=== PATIENT | male | born 1945 | race Caucasian/White ===

== ENCOUNTER → 2016-10-07 | Outpatient (CLI) | payer OTHER, MEDICARE ==
[~2016-10-07] MED LIST: ASPI81TA21 PO; BUPRTAB51 PO; ESCI10TA17 PO; EZET10TA47 PO; FISHOIL PO; LISI-788 PO; LSN/10125 PO; MULTTAB58 PO; NAPR500T3 PO; TAMS0.4C59 PO
== END | disposition home or self-care (01) ==
LOC: C.RDSM 16:00
PROVIDERS: ATTEND Physical Medicine & Rehabilitation Sports Medicine
DX: M25.532 Pain in left wrist (principal)

== ENCOUNTER → 2016-11-03 | Outpatient (CLI) | payer OTHER, MEDICARE ==
[2016-11-03 15:29] LABS: HEMATOCRIT 38.9 % (42-52); MEAN CELL VOLUME 87.6 fL (80-100); MEAN CORPUSCULAR HEMOGLOBIN 30.9 pg (25-34); MEAN CORPUSCULAR HGB CONC 35.2 g/dl (32-36); MEAN PLATELET VOLUME 9.7 fL (7.4-10.4); PLATELET COUNT 236 K/uL (130-400); RED BLOOD COUNT 4.44 M/uL (4.7-6.1)
[2016-11-03 15:40] LABS: BLOOD UREA NITROGEN 23 mg/dl (7-18); BUN/CREATININE RATIO 16.1 (10-20); CALCIUM 8.7 mg/dl (8.5-10.1); CARBON DIOXIDE 27 mmol/L (21-32); CHLORIDE 107 mmol/L (98-107); GLUCOSE 105 mg/dl (70-99); POTASSIUM 3.7 mmol/L (3.5-5.1); SODIUM 143 mmol/L (136-145)
== END | disposition home or self-care (01) ==
LOC: C.CPL 14:48
PROVIDERS: ATTEND Physical Medicine & Rehabilitation Sports Medicine
DX: Z01.818 Encounter for other preprocedural examination (principal); G56.02 Carpal tunnel syndrome, left upper limb

== ENCOUNTER → 2016-11-05 | Outpatient (CLI) | payer OTHER, MEDICARE ==
[2015-11-13 14:01] VITALS: BP 120/77; PULSE 62
[~2016-11-05] MED LIST changes: -ESCI10TA17 PO; -LSN/10125 PO; -MULTTAB58 PO
[2016-11-05 12:53] VITALS: BP 109/71; PULSE 105; TEMP 36.7; O2SAT 96
--- NOTE | 2016-11-05 13:32 | Radiation Oncology Follow-Up ---
Radiation Oncology Follow-Up Date of Visit Nov 05, 2016. Reason For Visit Annual follow-up Radiation Completion Date Seed Implant - 10/04/12 Diagnosis (1) Prostate cancer Status: Resolved Onset Date: 07/21/2012 Location: right lobe of the prostate Histology Subtype: adenocarcinoma Stage: l Permanent Comment: Abnormal digital rectal exam Status post prostate biopsy revealing adenocarcinoma Cactus grade 3+3 biopsy stage TIIa presenting PSA 0.8 status post seed implant with cesium 131 as monotherapy 10/04/2012 79 seeds were placed 115Gy Last Edited By: Rosa Douglas on May 08, 2015 13:39 History of Present Illness Mr. Jaeger is a 71-year-old white male who is found to be having abnormal digital rectal exam by Dr. Washburn. He was referred to Dr. Stewart who did an ultrasound-guided biopsy of the prostate on 07/21/2012. The pathology revealed Niharika score 6 adenocarcinoma from the right apex with tumor involving less than 0.1 cm of a 1.5 cm core. Rest of the biopsies were negative for malignancy. His PSA was only 0.8. Options of treatment were reviewed with the patient and ultimately he made a decision to undergo treatment with a prostate seed implant as monotherapy. Interim History Patient doing well over this past year. He feels his urinary status is stable. He gave an AUA score 8. Last year he gave a score 6. He completed expanded prostate cancer index composite for clinical practice and gave a score of 0 12 and urinary incontinence symptoms. He gave a score of one of 12 and urinary irritation symptoms. He gave a score 0 of 12 bowel symptoms. He has score of 10 of 12 in sexual symptoms. He gave a score 3 of 12 and hormonal vitality symptoms. 2 new he has a history of depression and this is under control with medication. His total was 14 of 60. He continues on tamsulosin once daily. He recently underwent preadmission testing for carpal tunnel release. Allergies Coded Allergies: Atorvastatin (Verified Allergy, Unknown, ELEVATED CHOLESTEROL (QUADRUPLED) , 11/03/16) Home Medications Scheduled Aspirin Enteric Coated (Ecotrin Or Generic), 81 MG PO QAM Bupropion (Wellbutrin-Xl), 450 MG PO QAM Ezetimibe (Zetia), 10 MG PO QAM Fish Oil ([place]-3), 1 CAP PO QAM Lisinopril/Hctz (Zestoretic 20MG/25MG), 1 TAB PO QAM Naproxen (Naproxen), 500 MG PO BID Tamsulosin Hcl (Flomax), 0.4 MG PO HS Review of Systems Gastrointestinal: Symptoms: WNL Oral: Symptoms: No Problems Respiratory: Symptoms: WNL Urinary: Symptoms: Nocturia Comments: Nocturia x 1-2, See AUA & EPIC Skin: Symptoms: No Problems Other Skin Symptoms: "will see a thermometer tester soon " has HX of skin cancer on face Physical Exam Vital Signs Date Time Temp Pulse Resp B/P Pulse Ox O2 Delivery O2 Flow Rate FiO2 11/05/16 12:53 36.7 105 16 109/71 96 Pain: Pain Onset: years Pain Duration: gets worse at times Side: Bilateral Pain Location: knees ankles, and shoulders Patient Pain Scale: 0 - 10 Initial Pain Intensity: 2.0 Pain Description: Burning Fatigue: None General Appearance: no apparent distress Eyes: normal inspection, EOMI ENT: normal ENT inspection, hearing grossly normal Neck: no adenopathy, thyroid normal Respiratory/Chest: lungs clear, no respiratory distress, no accessory muscle use Cardiovascular: regular rate, rhythm, no gallop, no murmur Abdomen: non tender, soft Anal / Rectum: Normal sphincter tone. Prostate consistent with seed implant. No rectal masses no rectal bleeding. Extremities: no pedal edema Neurologic/Psychiatric: no motor/sensory deficits, alert, normal mood/affect Skin: warm/dry Lymphatic: no adenopathy Laboratory Studies Test 11/03/16 14:52 White Blood Count 6.70 K/uL (4.8-10.8) Red Blood Count 4.44 M/uL (4.7-6.1) Hemoglobin 13.7 g/dL (14.0-18.0) Hematocrit 38.9 % (42-52) Mean Corpuscular Volume 87.6 fL (80-100) Mean Corpuscular Hemoglobin 30.9 pg (25-34) Mean Corpuscular Hemoglobin Concent 35.2 g/dl (32-36) RDW Standard Deviation 45.4 fL (36.4-46.3) RDW Coefficient of Variation 14.2 % (11.5-14.5) Platelet Count 236 K/uL (130-400) Mean Platelet Volume 9.7 fL (7.4-10.4) Sodium Level 143 mmol/L (136-145) Potassium Level 3.7 mmol/L (3.5-5.1) Chloride Level 107 mmol/L (98-107) Carbon Dioxide Level 27 mmol/L (21-32) Anion Gap 9.0 mmol/L (3-11) Blood Urea Nitrogen 23 mg/dl (7-18) Creatinine 1.40 mg/dl (0.60-1.40) Estimated GFR () 58.6 Estimated GFR (Non- 50.5 BUN/Creatinine Ratio 16.1 (10-20) Random Glucose 105 mg/dl (70-99) Calcium Level 8.7 mg/dl (8.5-10.1) Additional Studies He recently had a PSA 10/16/2015 and this was 0.12. Assessment & Plan Plan: Continue regular follow-up with Dr. Washburn. He is not followed up with urology in the past year. He sees Dr. Santiago every 6 months. A follow-up appointment with our office was not given. He can continue the recheck PSAs and annual digital rectal examinations through Dr. Washburn's office. He may call our office if he has new questions or concerns would be happy to see him. Total Time In Follow-Up I spent 20 minutes speaking to the patient performing examination. I spent 15 minutes reviewing information in completing this note. Copy To Fernando Washburn M.D.
== END | disposition home or self-care (01) ==
LOC: C.ONC 12:41
PROVIDERS: ATTEND Radiology Radiation Oncology
DX: Z08 Encounter for follow-up examination after completed treatment for malignant neoplasm (principal); Z92.3 Personal history of irradiation; Z85.46 Personal history of malignant neoplasm of prostate

== ENCOUNTER → 2016-11-12 | Day surgery (SDC) | payer OTHER, MEDICARE ==
[2016-11-03 14:17] VITALS: Ht 184.2 cm; Wt 90.9 kg
[~2016-11-12] VITALS: Ht 184.2 cm; Wt 90.9 kg
[~2016-11-12] MED LIST changes: +ATROPINE SULFATE 0.1 MG/ML 5ML SYR IV PRN; +BUPIVACAINE/EPINEPHRINE 0.5% MPF 1:200,000 30 ML VIAL ONE; +CEFAZOLIN 2000 MG/60 ML D5W IV SCH; +CEFAZOLIN IV 2,000 MG/60 ML D5W IV ONE; +EpHEDrine SULFATE INJ 50 MG/ML AMP IV PRN; +FENTANYL CITRATE INJ 50 MCG/1 ML 2 ML VIAL IV PRN; +FENTANYL CITRATE INJ 50 MCG/1 ML 2 ML VIAL ONE; +HYDROCODONE/ACETAMOPHEN 5/325MG TAB PO PRN; +LACTATED RINGER'S 1000ML 1,000 ML IV SCH; +LIDOCAINE HCL 2% 2 ML VIAL (20MG/ML) ONE; +LIDOCAINE/EPINEPHRINE 1% INJ 50 ML VIAL ONE; +MIDAZOLAM HCL 1 MG/ML 2ML VIAL ONE; +MoRPHine SULFATE 2 MG/ML CARP IV PRN; +MoRPHine SULFATE 4 MG/ML 1 ML CARP\\VIAL IV PRN; +ONDANSETRON INJ 2 MG/ML 2 ML VIAL IV PRN; +PROPOFOL IV EMULSION 10 MG/ML 20 ML VIAL IV ONE; +SODIUM CHLORIDE 0.9% 1000ML 1,000 ML IV SCH
--- NOTE | 2016-11-12 08:04 | History & Physical Bridge Note ---
H&P Re-Evaluation Bridge Note: I have examined the patient, reviewed the History & Physical and in the interval since the performance of the History & Physical I have noted the following changes of clinical significance: No changes noted
--- NOTE | 2016-11-12 09:43 | [facility] Post Operative Brief Note ---
Immediate Operative Summary Operative Date Nov 12, 2016. Pre-Operative Diagnosis Left Carpal Tunnel Syndrome Post-Operative Diagnosis Same Procedure(s) Performed Left Carpal Tunnel Release Surgeon Dr. Dukes Cart Attendant Surgeon(s) Kenrick Hector PA-C, sarita newman, MS3 Estimated Blood Loss Minimal Findings none Specimens None Anesthesia local with IV sedation Complication(s) None Disposition Recovery Room / PACU
--- NOTE | 2016-11-12 09:47 | [facility] Operative Report ---
Operative Report Operative Date Nov 12, 2016. Pre-Operative Diagnosis Left Carpal Tunnel Syndrome Post-Operative Diagnosis Same Procedure(s) Performed Left Carpal Tunnel Release Surgeon Dr. Dukes Medical Anthropology Director Surgeon(s) Kenrick Hector PA-C, sarita newman, MS3 Estimated Blood Loss Minimal Findings NA Specimens None Complication(s) None Disposition Recovery Room / PACU I attest to the content of the Intraoperative Record and any orders documented therein. Any exceptions are noted below.
--- NOTE | 2016-11-12 09:48 | Medical Student: [facility] ---
Immediate Operative Summary Operative Date Nov 12, 2016. Pre-Operative Diagnosis Left Carpal Tunnel Syndrome Post-Operative Diagnosis Left Carpal Tunnel Syndrome Procedure(s) Performed Left Carpal Tunnel Release Surgeon Dr. Dukes Media Associate Surgeon(s) JOELLE Hector PA-C Estimated Blood Loss Minimal Findings None Specimens None Complication(s) None Disposition Recovery Room / PACU
[2016-11-12 09:49] VITALS: TEMP 36.5
--- NOTE | 2016-11-12 09:52 | Discharge Instructions ---
Discharge Instructions Admission Reason for Admission: Left Carpal Tunnel Syndrome Discharge Discharge Diagnosis / Problem: Left carpal tunnel release Discharge Goals Goal(s): Decrease discomfort, Improve function, Increase independence Activity Recommendations Activity Limitations: as noted below Lifting Limitations: until after follow-up appointment Exercise/Sports Limitations: until after follow-up appointment May Resume Sexual Activity: when tolerated Shower/Bathe: tomorrow, keep incision dry Driving or Machine Use: resume 1 day after discharge No lifting with Left upper extremity. . Instructions / Follow-Up Instructions / Follow-Up The following are instructions to follow after minor hand surgery. ACTIVITY RECOMMENDATIONS: * Minimize activity until your first visit after surgery. * No excessive walking, jogging, sports or laboring. * Return to activity is individualized. Most patients are able to return to everyday activities within 2 weeks. * Return to sports or intensive labor usually occurs at 1-2 months. * DRIVING: Driving may be resumed when you feel you have adequate pain control and use of the hand. * BATHING: You may shower or sponge-bathe immediately after surgery. The dressing will need to be covered with a plastic bag or plastic wrap until the dressing is changed on the fourth or fifth day after surgery. Once the dressing has been changed on the fourth or fifth day after surgery, you may shower and get the incision wet. * Wash with regular soap and water. * Do not bathe (submerge the incision), soak, swim or use a hot tub until the incision is completely healed over with normal skin and the doctor has given the OK to proceed. * There is no need to apply any ointments, powders or salves to your incision. * Do not apply alcohol or hydrogen peroxide directly to the incision. Diluted peroxide (50:50 mixture with sterile saline) may be used to clean dried blood from around the incision area. WORK/SCHOOL: * You may return to sedentary work or school when you are feeling comfortable. This is usually 3-7 days after surgery. * Expect increased discomfort with increased activity. Continue to elevate and ice the hand as much as possible. DIET: * Resume previous diet. MEDICATIONS: * You will have a prescription for pain medication and an anti-inflammatory medication after surgery. Use the pain pills for severe pain and the anti-inflammatory for less severe pain. * Once the pain pills have run out, try to use the anti-inflammatory. If this is not effective then contact the office for assistance. * The pain medication may cause nausea, constipation and sleepiness. You should see how they affect you before driving or similar activity. * The anti-inflammatory may cause stomach upset and bleeding. If this occurs, let your doctor know immediately . * Some patients may need blood clot prevention. This can be done with either a pill or a simple shot. Your doctor will advise you on when to begin these medications and how to take them. * Do not take aspirin or other anti-inflammatory products (i.e. Advil or Aleve ) if taking blood thinner medication. * Take a stool softener like Colace or a stimulant like Senokot to prevent constipation. SPECIAL CARE INSTRUCTIONS: ICE: * Do not apply ice directly to the skin. * Use a thin dressing or stockinet between the skin and ice bag. The dressing in place after surgery will suffice. * Apply ice for 20-30 minutes and repeat every 2-4 hours. This is especially important for the first 3-7 days after surgery. * Once the pain improves, use ice as needed. ELEVATION: * Keep your hand elevated at or above the level of your heart as much as possible. * Expect some increased discomfort and swelling if you allow your hand to hang down for any length of time. DRESSING: * Your dressing will be changed 4-5 days after surgery by the physical therapist or physician's bar assistant. Leave your dressing intact until this time. * You may then change your dressing daily with clean dry gauze or Band-aids and a soft wrap or stockinet. * Always wash your hands prior to touching the incision area. * Once the stitches are removed, you may leave the wound open to air or cover with a thin bandage. * There is no need to apply any ointments, powders or salves to your incision. * Expect some bloody drainage for the first few days after surgery. * Leave the tape strips in place (if present) for 5-7 days. * The initial dressing after surgery may become soaked with blood or fluid which is normal. You may reinforce your dressing with clean, dry gauze as needed. BRACE: * Bracing is generally not needed after routine hand surgery. THERAPY: * Physical therapy may be prescribed after your surgery. * For carpal tunnel and trigger digit surgery you may begin moving your fingers and wrist immediately after surgery as tolerated. * Be careful to not overuse. * Once the sutures are removed, further range of motion exercises can be performed. * Hand incisions may be very sensitive for a few months after surgery so avoid excessive pressure on the incision. If necessary, use a padded weightlifters' glove. * You may massage the incision with skin cream to make it less sensitive and reduce scarring. * Hand strength usually returns with normal use. * If needed, squeezing a soft sponge or Play-dough may help. * Your doctor will recommend physical therapy if necessary. PROBLEMS/QUESTIONS: * If you have any problems such as severe pain, numbness, tingling or high fevers or if you have any questions, please contact the office at [phone]. * It is not uncommon to have some numbness and tingling after the surgery especially if you have had a nerve block done. This should gradually improve over the first 1- 2 days. If this persists longer or worsens then contact the office. FOLLOW UP VISIT: * If not already scheduled, please call the office at to schedule follow-up appointments for approximately 10 days, 6 weeks and 3 months after surgery. Current Hospital Diet Patient's current hospital diet: Discharge Diet Recommended Diet: Regular Diet Procedures Procedures Performed: Left Carpal Tunnel Release Pending Studies Studies pending at discharge: no Medical Emergencies . Who to Call and When: Medical Emergencies: If at any time you feel your situation is an emergency, please call 911 immediately. . Non-Emergent Contact Non-Emergency issues call your: Primary Care Provider Call Non-Emergent contact if: temperature is above 101.5, your pain is not controlled, wound has increased drainage, you have any medication questions . "Provider Documentation" section prepared by Juan oJsé Hector. VTE Core Measure Inpt VTE Proph given/why not?: Treatment not indicated [place] Drug Monitoring Program Search Results: no issues identified
--- NOTE | 2016-11-12 10:02 | Anesthesia Progress Nt - [facility] ---
Anesthesia Post Op Note Date & Time Nov 12, 2016 at 10:02 Vital Signs Pain Intensity: 0 Vital Signs Past 12 Hours Date Time Temp Pulse Resp B/P Pulse Ox O2 Delivery O2 Flow Rate FiO2 11/12/16 09:49 36.5 67 18 125/74 96 Room Air 11/12/16 07:52 36.4 60 16 133/91 98 Room Air Notes Mental Status: alert / awake / arousable, participated in evaluation Pt Amnestic to Procedure: Yes Nausea / Vomiting: adequately controlled Pain: adequately controlled Airway Patency, RR, SpO2: stable & adequate BP & HR: stable & adequate Hydration State: stable & adequate Anesthetic Complications: no major complications apparent
[2016-11-12 10:20] VITALS: BP 120/78; PULSE 59; O2SAT 98
--- NOTE | 2016-11-12 13:14 | OPERATIVE REPORT ---
DATE OF OPERATION: 11/12/2016 PREOPERATIVE DIAGNOSIS: Left carpal tunnel syndrome. POSTOPERATIVE DIAGNOSIS: Same. PROCEDURE: Open left carpal tunnel release. SURGEON: Dr. Dukes. PANTOGRAPH TRANSFERRER: JOELLE Hector, physician's educational program assistant. No resident or fellow available. SECOND PANTOGRAPH TRANSFERRER: Tanner Dave [employer] third year medical student. ANESTHESIA: Local with IV sedation. INDICATIONS OF PROCEDURE: The patient is a 71-year-old male with left carpal tunnel syndrome refractory to nonsurgical methods of management. OPERATION AND FINDINGS: PROCEDURE IN DETAIL: Informed consent was obtained. The patient was identified as John Jaegre. He identified the operative site as the left hand. I marked it with my initials. A preop surgical time out was performed. A preop dose of IV antibiotics was given. He was taken to the operating room, positioned supine on the hospital stretcher with the left arm on a hand table and a tourniquet on the left upper arm. The limb was prepped and draped in usual sterile fashion. The exam under anesthesia was unremarkable. DVT prophylaxis is not indicated. 1% lidocaine with epinephrine was injected into the carpal tunnel for a local anesthetic. IV sedation was administered. A preop dose of IV antibiotics was given. The limb was exsanguinated with the Esmarch. After routine prep and drape the tourniquet inflated to 225 mmHg. Longitudinal incision was made in line with the 3rd webspace following the slightly serpiginous longitudinal palmar crease. The incision stopped short of the distal transverse wrist crease. Blunt dissection was performed down to the subcutaneous tissues. A notably thickened and expansile superficial palmar fascia was identified and divided in line with the incision. The transverse carpal ligament was identified and divided in line with 3rd webspace up into the distal palmar fascia under direct visualization. The contents of the carpal canal and median nerve appeared normal. A good proximal and distal decompression had been obtained. The wound was irrigated and closed with horizontal mattress 4-0 nylon sutures. A soft sterile dressing was applied. The tourniquet was let down after approximately 15 minutes of inflation. There were no specimens or complications. Counts were correct at the end of case. Blood loss was minimal. At the conclusion of the operation, I spoke to the patient's family and informed them of my findings. Postoperative instructions were given. I attest to the content of the Intraoperative Record and any orders documented therein. Any exceptio ns are noted below.
== END | disposition home or self-care (01) ==
LOC: X.SURG 07:34
PROVIDERS: ATTEND Physical Medicine & Rehabilitation Sports Medicine
DX: G56.02 Carpal tunnel syndrome, left upper limb (principal); C61 Malignant neoplasm of prostate; F32.9 Major depressive disorder, single episode, unspecified; I10 Essential (primary) hypertension; E78.5 Hyperlipidemia, unspecified; I34.8 Other nonrheumatic mitral valve disorders; Z79.82 Long term (current) use of aspirin; Z87.891 Personal history of nicotine dependence

== ENCOUNTER 2019-05-30 06:46 | Inpatient (IN) ==
--- NOTE | 2019-05-08 09:45 | PAT Medication Instructions ---
Medication Instructions Date of Service May 08, 2019 Home Medications bupropion HCl 300 mg PO QAM escitalopram oxalate 10 mg PO QAM ezetimibe 10 mg PO QAM ibuprofen 600 mg PO BID NEEDED lisinopril-hydrochlorothiazide 1 tab PO QAM omega 0-ble-juw-fish oil [Fish Oil] 1 cap PO QAM ASK your surgeon for instructions ibuprofen 600 mg PO BID NEEDED STOP taking 2 weeks before surgery omega 4-ivi-ogr-fish oil [Fish Oil] 1 cap PO QAM DO NOT take the morning of surgery lisinopril-hydrochlorothiazide 1 tab PO QAM Take morning of surgery With a small sip of water, OTHERWISE NOTHING TO EAT OR DRINK AFTER MIDNIGHT: bupropion HCl 300 mg PO QAM escitalopram oxalate 10 mg PO QAM ezetimibe 10 mg PO QAM Other Notes If you have any questions please call us at [phone] or [phone] or [phone] or [phone]
--- NOTE | 2019-05-08 09:59 | Anesthesiology Consultation ---
Date of Service May 08, 2019 Assessment & Plan (1) Encounter for pre-operative examination: No previous anesthesia re: intubations. Chart Review Chart Review: Acceptable Risk for Surgery and Patient seen in Pre Admission Test ing Consults Requested medical (Dr. Washburn (March)) Patient was seen by PCP on 03/31/19 for preoperative evaluation. Per note from that visit, "Preop clearance for knee replacement. No history of cardiovascular disease or CVA. Patient with met score over 8. RCRI level 1." Patient was seen by Dr. Stewart on 04/10/[address] Dukes. Per note, there are no further recommendations and patient is to follow up in 1 year. Teaching & Discussion Pre-Anesthesia Teaching/Discussion Notes: Instructed NPO after midnight before surgery, except medications with 15 cc of water. Medication instructions provided according to the PAT guidelines. History Surgery Operation Date: 05/30/19 09:20 Proposed Procedures p Left Total Knee Arthroplasty - Aman Dukes MD Height/Weight Height: 6 ft 1 in Weight: 94.6 kg Allergies Allergy/AdvReac Type Severity Reaction Status Date / Time atorvastatin AdvReac Unknown ELEVATED Verified 05/02/19 09:48 CHOLESTEROL (QUADRUPLED) Medications Home Medications Medication Instructions Recorded Confirmed Last Taken bupropion HCl 300 mg PO QAM 05/02/19 05/02/19 Unknown escitalopram oxalate 10 mg PO QAM 05/02/19 05/02/19 Unknown ezetimibe 10 mg PO QAM 05/02/19 05/02/19 Unknown ibuprofen 600 mg PO BID PRN 05/02/19 05/02/19 Unknown lisinopril-hydrochlorothiazide 1 tab PO QAM 05/02/19 05/02/19 Unknown omega 1-ysg-pvx-fish oil [Fish Oil] 1 cap PO QAM 05/02/19 05/02/19 Unknown Past Medical History Medical History BCC (basal cell carcinoma) Cancer 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 Depression Hyperlipidemia Hypertension Osteoarthritis Exercise / Class Metabolic Activity II 4-5 Yardwork/Stairs/Walk up hill (Able to climb FOS. Denies CP or SOB. ) Past Family History Family History Other No pertinent family history Past Surgical History Surgical History History of arthroscopy RIGHT KNEE History of cataract surgery BILATERAL History of colonoscopy History of surgical removal of skin lesion History of tonsillectomy S/P Mohs surgery for basal cell carcinoma Past Anesthesia History No Hx of Anesthesia Complications History of PONV No Hx of PONV and No Hx of Motion Sickness Social History Smoking Status: Never smoker Do You Dip or Chew Tobacco: No Hx Alcohol Use: Yes Alcohol type: beer and hard liquor alcohol intake frequency: a few times a week Hx Substance Use: No substance use type: does not use Review of Systems Patient denies chest pain, shortness of breath, dyspnea on exertion, reflux, cough, wheezing, palpitations. +Joint Pain (Knees, Shoulders) Physical Exam Vital Signs BP: 146/90 P: 60 R: 16 T: 98.1 SPO2: 98% on RA ENMT Thyromental Distance: > or= 3.5 Finger Breadths (4) Mallampati Class: I Neck normal visual inspection and trachea midline; neck extension not limited Respiratory normal respiratory effort Auscultation: lungs clear to auscultation bilaterally Cardiovascular Rate/Rhythm: regular rate and regular rhythm Heart Sounds: no murmur Vessels: no carotid bruit Neurologic moves all extremities Psychiatric Orientation: alert and oriented x 3 Testing Laboratory Results 05/08/19 09:33 05/08/19 09:53 PT 10.3 Seconds (9.0-12.0) 05/08/19 09:33 INR 1.0 (0.9-1.1) 05/08/19 09:33 APTT 27.5 Seconds (21.0-31.0) 05/08/19 09:33 Blood Type O Negative 05/08/19 09:33 Antibody Screen NEGATIVE 05/08/19 09:33 Electrocardiogram Date: 05/08/19 Findings: + NSR @ (60) and + no change from (11/03/16) Chest X-Ray Date: 05/08/19 Findings: + NAD
--- NOTE | 2019-05-08 10:18 | XRay Report ---
XR chest Pre-admission PA/Lat CLINICAL HISTORY: Preoperative chest COMPARISON STUDY: September 21, 2012 FINDINGS: The cardiac and mediastinal contours are normal. There is no evidence of focal pulmonary co nsolidation. There is no evidence of failure. No pleural effusions are visualized.[ IMPRESSION: No active disease in the chest. Electronically signed by: Timoteo Gallagher M.D. 05/08/2019 10:17 AM
[2019-05-08 11:05] LABS: Basophils # (auto) 0.04 K/uL (0-0.2); Basophils % (auto) 0.7 %; Eosinophils # (auto) 0.23 K/uL (0-0.5); Eosinophils % (auto) 3.8 %; Hematocrit (blood only) 40.8 % (42-52); Hemoglobin 14.5 g/dL (14.0-18.0); Immature Granulocytes # (auto) 0.03 K/uL (0.00-0.02); Immature Granulocytes % (auto) 0.5 %; Lymphocytes % (auto) 24.5 %; Mean Corpuscular Hemoglobin 31.2 pg (25-34); Mean Corpuscular Hgb Conc 35.5 g/dL (32-36); Mean Corpuscular Volume 87.7 fL (80-100); Mean Platelet Volume 9.8 fL (7.4-10.4); Monocytes # (auto) 0.41 K/uL (0.11-0.59); Monocytes % (auto) 6.7 %; Neutrophils % (auto) 63.8 %; Platelet Count 250 K/uL (130-400); RDW Coefficient of Variation 14.2 % (11.5-14.5); RDW Standard Deviation 45.7 fL (36.4-46.3); Red Blood Count 4.65 M/uL (4.7-6.1); White Blood Count 6.11 K/uL (4.8-10.8)
[2019-05-08 11:15] LABS: BUN Creatinine Ratio 20.6 (10-20); Creatinine Clr Calc Pharmacy 59.5 ml/min; Est GFR (African American) 65.8; Est GFR (Non-African American) 56.8
[2019-05-08 11:16] LABS: Partial Thromboplastin Time 27.5 Seconds (21.0-31.0); Prothrombin Time 10.3 Seconds (9.0-12.0)
[~2019-05-30 06:46] MED LIST changes: +ACETAMINOPHEN 500 MG TAB PO SCH; -ASPI81TA21 PO; -ATROPINE SULFATE 0.1 MG/ML 5ML SYR IV PRN; +BUPIVACAINE 0.5 % 5 MG/1 ML PF 10ML VIAL ONE; -BUPIVACAINE/EPINEPHRINE 0.5% MPF 1:200,000 30 ML VIAL ONE; -BUPRTAB51 PO; -CEFAZOLIN 2000 MG/60 ML D5W IV SCH; +CEFAZOLIN 2000MG 2,000 MG/15 ML SYR IV SCH; -CEFAZOLIN IV 2,000 MG/60 ML D5W IV ONE; +CeleBREX 200 MG CAP PO SCH; -EZET10TA47 PO; -EpHEDrine SULFATE INJ 50 MG/ML AMP IV PRN; +FAMOTIDINE 20 MG TAB PO SCH; -FENTANYL CITRATE INJ 50 MCG/1 ML 2 ML VIAL IV PRN; -FENTANYL CITRATE INJ 50 MCG/1 ML 2 ML VIAL ONE; -FISHOIL PO; +GABAPENTIN 300 MG CAP PO SCH; -HYDROCODONE/ACETAMOPHEN 5/325MG TAB PO PRN; -LACTATED RINGER'S 1000ML 1,000 ML IV SCH; -LIDOCAINE HCL 2% 2 ML VIAL (20MG/ML) ONE; -LIDOCAINE/EPINEPHRINE 1% INJ 50 ML VIAL ONE; -LISI-788 PO; +LR 500ML BOLUS, THEN 15ML/HR IV SCH; +LR 60ML/HR IV SCH; +METOCLOPRAMIDE HCL 10 MG TABLET PO SCH; -MIDAZOLAM HCL 1 MG/ML 2ML VIAL ONE; -MoRPHine SULFATE 2 MG/ML CARP IV PRN; -MoRPHine SULFATE 4 MG/ML 1 ML CARP\\VIAL IV PRN; -NAPR500T3 PO; -ONDANSETRON INJ 2 MG/ML 2 ML VIAL IV PRN; +OXYCODONE HCL 10 MG TABCR (OXYCONTIN) PO SCH; -PROPOFOL IV EMULSION 10 MG/ML 20 ML VIAL IV ONE; +ROPIVACAINE 0.5% 5 MG/ML 30 ML VIAL ONE; +ROPIVACAINE 0.5% HCL/PF 150 MG, BUPIVACAINE 0.5% MPF 30 ML, EPINEPHrine 0.15 MG, Ketoro... INFIL SCH; -SODIUM CHLORIDE 0.9% 1000ML 1,000 ML IV SCH; -TAMS0.4C59 PO; +TRAMADOL HCL 50 MG TABLET PO SCH; +TRANEXAMIC ACID 1,000 MG **IV Intra-op IV SCH; +TRANEXAMIC ACID 1,000 MG **IV Pre-op IV SCH; +cloNIDine HCL 0.1 MG/24 HR TRANSDERM SYS TD SCH; +dexAMETHasone 4 MG TAB PO SCH
[2019-05-30] MEDS ORDERED: LIDOCAINE HCL 2% 2 ML VIAL/AMP(20MG/ML) INFIL ONE ×2 (08:11→14:01)
[2019-05-30] MEDS ORDERED: PROPOFOL IV EMULSION 10 MG/ML 20 ML VIAL IV ONE ×2 (08:11→14:01)
[2019-05-30] MEDS ORDERED: MIDAZOLAM HCL 1 MG/ML 2ML VIAL ONE ×2 (08:11→09:50)
[2019-05-30] MEDS ORDERED: fentaNYL citrate 100 MCG/2 ML VIAL ONE ×2 (08:11→13:44)
--- NOTE | 2019-05-30 10:29 | History & Physical Bridge Note ---
Date of Service May 30, 2019 History & Physical Bridge Note I have examined the patient, reviewed the History & Physical and in the interval since the performance of the History & Physical I have noted the following changes of clinical significance: no changes noted
[2019-05-30] MEDS ORDERED: ORTHO JOINT ANESTHETIC ONE (10:30)
[2019-05-30] MEDS ORDERED: BACITRACIN INJ 50,000 UNIT VIAL ONE (10:30)
--- NOTE | 2019-05-30 14:55 | Post Operative Brief Note ---
Immediate Post Op Note v1 Date of Surgery May 30, 2019 Pre & Post Diagnosis Operation Date: 05/30/19 09:20 Pre-Op Diagnosis: Left Knee Degenerative Joint Disease Post-Op Diagnosis: Left Knee Degenerative Joint Disease Procedure Operation Date: 05/30/19 09:20 Actual Procedures p Left Total Knee Arthroplasty(Left) - Aman Dukes MD Surgeon Aman Dukes MD Faculty Instructor alma delia Estimated Blood Loss 15 Findings Consistent with Post-Op Diagnosis Drains Hemovac Drain (10 italian round x2 resevoirs) Anesthesia Type General Regional Complications none Disposition Accompanied Patient To Recovery: No Disposition: Recovery Room
[2019-05-30] MEDS ORDERED: TRAMADOL HCL 50 MG TABLET PO PRN (14:57)
[2019-05-30] MEDS ORDERED: HYDROmorphone INJ 0.5 MG/0.5 ML SYR IV PRN (14:57)
[2019-05-30] MEDS ORDERED: OXYCODONE HCL IR 5 MG TAB (IMMEDIATE RELEASE) PO PRN (14:57)
[2019-05-30] MEDS ORDERED: BISACODYL 10 MG SUPP PR PRN (14:57)
[2019-05-30] MEDS ORDERED: ONDANSETRON INJ 2 MG/ML 2 ML VIAL IV PRN (14:57)
[2019-05-30] MEDS ORDERED: METOCLOPRAMIDE HCL INJ 5 MG/ML 2 ML VIAL IV PRN (14:57)
[2019-05-30] MEDS ORDERED: MAGNESIUM HYDROXIDE SUSP 30 ML UDC PO PRN (14:57)
[2019-05-30] MEDS ORDERED: DiphenhydrAMINE HCL 50 MG/ML VIAL IV PRN (14:57)
[2019-05-30] MEDS ORDERED: ALUMINUM/MAGNESIUM SUSP 30 ML UDC PO PRN (14:57)
[2019-05-30] MEDS ORDERED: NALOXONE HCL 0.4 MG/1 ML VIAL/CARP IV PRN (14:57)
--- NOTE | 2019-05-30 14:57 | Operative Report ---
Post Operative Report Pre & Post Diagnosis Operation Date: 05/30/19 09:20 Pre-Op Diagnosis: Left Knee Degenerative Joint Disease Post-Op Diagnosis: Left Knee Degenerative Joint Disease Procedure Operation Date: 05/30/19 09:20 Actual Procedures p Left Total Knee Arthroplasty(Left) - Aman Dukes MD Surgeon Aman Dukes MD Dirt Supervisor Antwan Hector PA-C Estimated Blood Loss 15 Findings Consistent with Post-Op Diagnosis Specimens none Drains #2 hemovac drains Complications none Disposition Accompanied Patient To Recovery: Yes Disposition: Recovery Room Description of Procedure I was present during the entire case assisting with wound closure, dressing and brace application. Please see Dr. Dukes procedure note for specifics of the case. I attest to the content of the Intraoperative Record and any orders documented therein. Any exceptions are noted below.
--- NOTE | 2019-05-30 15:20 | XRay Report ---
TWO VIEWS LEFT KNEE CLINICAL HISTORY: Postoperative examination. FINDINGS: AP and crosstable lateral portable views of the left knee are obtained. A left knee arthrop lasty is in near anatomic alignment. There has been undersurface remodeling of the patella. No acute fracture is seen. There are expected postoperative changes around the knee including skin clips, a navarro rgical drain, soft tissue edema, and subcutaneous gas. IMPRESSION: Expected postoperative changes status post left knee arthroplasty. No acute fracture is s een. Electronically signed by: Sunny Perez M.D. 05/30/2019 3:19 PM
--- NOTE | 2019-05-30 15:33 | Operative Report ---
Post Operative Report Pre & Post Diagnosis Operation Date: 05/30/19 09:20 Pre-Op Diagnosis: Left Knee Degenerative Joint Disease Post-Op Diagnosis: Left Knee Degenerative Joint Disease Procedure Operation Date: 05/30/19 09:20 Actual Procedures p Left Total Knee Arthroplasty(Left) - Aman Dukes MD Surgeon Aman Dukes MD Transmitter Engineer In Charge Antwan Hector PA-C Estimated Blood Loss 15 Findings Consistent with Post-Op Diagnosis Specimens Resected bone and soft tissue Drains Hemovac x2 Anesthesia Type General Regional Complications none Disposition Accompanied Patient To Recovery: No Disposition: Recovery Room Indications Patient 74 years old. Severe end-stage arthritis left knee refractory to nonsurgical methods of management. He has elected to proceed with operative intervention. Description of Procedure Informed consent obtained. Patient identified. He identified the operative site as the left knee. I marked with my initials. A preoperative surgical timeout performed and a preop dose of IV antibiotics was given. He was positioned supine on the OR table with a bump under the left calf and a tourniquet on the left thigh. The leg was prepped and draped in the usual sterile fashion. DVT prophylaxis with foot pumps intraoperatively. Postop to be placed on Lovenox early mobility and mechanical devices. The exam under anesthesia revealed range of motion 3/0/130. He had 1+ MCL and LCL laxity in mid position the knee was stable in full extension. ACL PCL intact. Large left knee effusion. Limb exsanguinated with Esmarch. Tourniquet inflated 250 mmHg. A midline longitudinal incision was made. There was a flocculent prepatellar bursa with a large synovialized cavity present which was debrided. A prepatellar bursectomy was performed. A medial parapatellar arthrotomy was done evacuating a large accumulation of joint fluid. The retropatellar fat pad was resected. The soft tissue reflection in the lateral gutter was released. An extensile medial release was performed and soft tissue on the anterior aspect the distal femur was resected. There was severe arthritis throughout the knee [id number] changes with where both medial and lateral tibia particularly on the medial side. There are large osteophytes on the patella and femur and essentially grade 4 changes throughout the weightbearing area tibia and femur both compartments. Marginal osteophytes were removed as encountered. There was a substantial amount of synovitis present and this was thoroughly debrided to remove the hypertrophied joint lining and friable joint lining tissue. This was done in the suprapatellar pouch medial lateral gutters and were ever encountered. The patella was easily everted and the cruciate ligaments were resected. The menisci were removed. Retractors were inserted and the knee was subluxated. A guide hole was drilled in the proximal tibia just anterior to the lateral tibial spine. An intramedullary alignment ramiro was inserted followed by the cutting guide. This was set to resect 6 mm off of the lateral side corresponding to a skin cut medially. This was done due to the substantial laxity and hyperextension that the patient's knee had. The guide was pinned in place. The extra medullary alignment ramiro was utilized in the cut was in several degrees of varus. I then used a 2 degree valgus cutting block to address this. This aligned the cut appropriately in terms of both slope and varus valgus alignment. The 2 degree cutting block was utilized and care was taken to avoid any asleep to the cut which was carefully analyzed. I then turned my attention to the distal femur or pilot plant technician hole was drilled just above the PCL. Intramedullary alignment ramiro was inserted. 12 mm thick cut at 6 degrees left knee valgus. This cut was made in the epicondylar axis was marked out. The extension gap was tight 10 medially. More extensile medial release was performed and this improved the varus valgus laxity pattern. A 10 spacer block could be inserted. Femur was sized with 5 and the appropriate external rotation drill holes were made which matched the epicondylar axis. The size 5 anterior down cutting block was applied pinned in place and these cuts were made protecting the collateral ligaments. The box cutting guide was applied and lateralized and it was cut as well. Large osteophyte posterior medially was removed along with scar tissue on the medial lateral sides of the joint. The trial femur was inserted. The tibia was sized to a 5. The tibial component was lateralized pinned in the placed in the medial and Bone was resected with a soft. Again an extensile medial release was performed and this equalized the varus valgus laxity at full extension and 90 degrees which were equal. There is 1+ LCL laxity at mid position. The patella was sized to a 41. It measured 27-1/2 mm in thickness. The patella was cut for a 41. 11.5 mm were removed. The patellar paddle was aligned distal and medial. Composite patellar thickness at the end of the case was 28-1/2 mm. Webster assisted flexion with the extensor mechanism closed was 125 degrees. Patellar tracking was off but this was corrected when the tourniquet was let down. A lateral release was not needed. At this time the tourniquet was let down the components removed and the bony surfaces were prepared. Ortho joint mix was injected in the back of the knee and the canals were plugged. After being down for 10 minutes the tourniquet was reinflated after exsanguinating the limb. 2 bags of Simplex P cement were vacuum mixed and while in a doughy state the components were cemented in place. Femur tibia patella. The knee was helpful extension until the cement hardened and the tourniquet was again let down. The tourniquet time initially was 117 minutes and the tourniquet was up for 20 more minutes after being down for 10. Reticulocyte hemostasis was performed. An additional dose of TXA was given. The back the knee was inspected for cement of which a fair amount was noted medially. The knee had full extension flexion to 125. He was stable at 0 and 90 degrees had 1+ LCL laxity in mid position. The patella tracked fine with no hands technique. Copious irrigation was performed and soft tissues were kept moist throughout the procedure. The final polyethylene was inserted which is a 12.5 mm thick which equalized the flexion and extension gaps after the additional medial release. 2 drains were inserted. One in the bursa and joint. The one in the joint was brought out laterally and one in the bursa brought medially. The skin was closed in layers with 0 and 2-0 Vicryl. Prior to this the extensor mechanism was closed above the equator with interrupted #2 FiberWire and below the equator with running and interrupted #1 Vicryl. Webster assisted flexion approximately 120 to 125 degrees. Leg cleaned with wet and dry sponges and Xeroform 4 x 4's ABD cast padding Eder wrap knee immobilizer. Patient is awake from anesthesia without difficulty taken to the recovery room in stable condition. There were no complications. Blood loss was 15 cc. Counts were correct resected bone and soft tissue sent for specimen. At the conclusion the operation spoke patient's family and informed of my findings. Components inserted with a J[employer]J PFC Sigma rotating platform posterior stabilized knee 5 femur 5 tibia and a 41 patella. 12.5 mm size 5 spacer I attest to the content of the Intraoperative Record and any orders documented therein. Any exceptions are noted below.
--- NOTE | 2019-05-30 16:14 | Anesthesiology Progress Note ---
Date of Service May 30, 2019 Anesthesia Post Procedure Vital Signs Vital Signs: Temp Pulse Pulse Resp BP Pulse Ox 05/30/19 15:54 36.4 C L 56 L 20 133/84 96 05/30/19 15:45 58 L 20 146/90 H 93 05/30/19 15:35 36.4 C L 57 L 20 141/90 H 95 05/30/19 15:25 36.4 C L 54 L 14 136/86 94 05/30/19 15:15 58 L 17 128/81 94 05/30/19 15:05 57 L 16 140/85 95 05/30/19 14:58 36.2 C L 61 13 146/89 H 95 05/30/19 07:35 36.7 C 70 20 161/93 H 97 Pain Intensity Left Knee: Pain Intensity: 5 Transfer of Care Handoff Completed per policy Notes Mental Status: alert / awake / arousable Patient Amnestic to Procedure: Yes Nausea / Vomiting: adequately controlled Pain: adequately controlled Airway Patency, RR, SpO2: stable & adequate BP & HR: stable & adequate Hydration State: stable & adequate Anesthetic Complications: no major complications apparent and Pt Satisfied with anesthetic care
[2019-05-30] MEDS ORDERED: SODIUM CHLORIDE 0.9% 1000ML 1,000 ML IV SCH (17:00)
[2019-05-30] MEDS: KETOROLAC TROMETHAMINE 15 MG/ML VIAL IV SCH ×2 (17:23→23:34)
[2019-05-30] MEDS: CHECK CLONIDINE PATCH PLACEMENT SCH ×4 (17:23→23:34)
--- NOTE | 2019-05-30 18:01 | Orthopedic Progress Note ---
Date of Service May 30, 2019 Assessment & Plan (1) Arthritis of left knee: Present on Admission?: Yes (2) Status post left knee replacement: Doing well. Discussed surgical findings. X-rays of the knee are reviewed. There is good positioning of the components with no evidence of complication. Report noted. No fracture. We talked about his rehab as well as medicines and management of pain. We went over some do's and don'ts in terms of his activity. We will hold on range of motion of the knee until we get the drains out hopefully tomorrow start Lovenox in the morning. Postop IV antibiotics. PT and OT. Knee immobilizer on when he is up and walking. He did not take any of his medicines today. His blood pressure creeps up we will go ahead and give him a dose of his lisinopril early. Present on Admission?: No Subjective Doing fine. Minimal pain. Physical Exam Physical Exam: Dorsalis pedis posterior tib 1+. Sensation intact in the foot. Ankle and toe plantarflexion dorsiflexion 5- out of 5. Dressing clean and dry. Results & Data Vital Signs (Past 12 Hours) Vital Signs Temp Pulse Pulse Pulse Resp BP Pulse Ox 05/30/19 17:29 36.5 C 60 16 163/85 H 100 05/30/19 16:49 36.5 C 58 L 16 143/90 H 98 05/30/19 16:05 36.7 C 60 18 149/84 H 95 05/30/19 15:54 36.4 C L 56 L 20 133/84 96 05/30/19 15:45 58 L 20 146/90 H 93 05/30/19 15:35 36.4 C L 57 L 20 141/90 H 95 05/30/19 15:25 36.4 C L 54 L 14 136/86 94 05/30/19 15:15 58 L 17 128/81 94 05/30/19 15:05 57 L 16 140/85 95 05/30/19 14:58 36.2 C L 61 13 146/89 H 95 05/30/19 07:35 36.7 C 70 20 161/93 H 97
[2019-05-30] MEDS: CEFAZOLIN 2000MG 2,000 MG/15 ML SYR IV SCH (19:43)
[2019-05-30] MEDS ORDERED: TRANEXAMIC ACID 1,000 MG in 0.9 % SODIUM CHLORIDE 100 ML IV SCH (21:00)
[2019-05-30] MEDS: SENNA 8.6 MG TAB PO SCH (21:30)
[2019-05-30] MEDS: ACETAMINOPHEN 500 MG TAB PO SCH (21:31)
[2019-05-30] MEDS: DOCUSATE SODIUM 100 MG CAP PO SCH (22:31)
[2019-05-31] MEDS: CEFAZOLIN 2000MG 2,000 MG/15 ML SYR IV SCH (04:05)
[2019-05-31] MEDS: ACETAMINOPHEN 500 MG TAB PO SCH ×3 (05:45→21:23)
[2019-05-31] MEDS: ENOXAPARIN INJ 30 MG/0.3 ML SYR SQ SCH ×2 (05:47→18:22)
[2019-05-31 05:49] LABS: Hematocrit (blood only) 31.8 % (42-52); Hemoglobin 11.1 g/dL (14.0-18.0); Mean Corpuscular Hemoglobin 30.7 pg (25-34); Mean Corpuscular Hgb Conc 34.9 g/dL (32-36); Mean Corpuscular Volume 87.8 fL (80-100); Mean Platelet Volume 9.3 fL (7.4-10.4); Platelet Count 198 K/uL (130-400); RDW Coefficient of Variation 13.5 % (11.5-14.5); RDW Standard Deviation 43.9 fL (36.4-46.3); Red Blood Count 3.62 M/uL (4.7-6.1); White Blood Count 9.77 K/uL (4.8-10.8)
[2019-05-31] MEDS: KETOROLAC TROMETHAMINE 15 MG/ML VIAL IV SCH ×2 (05:49→11:49)
[2019-05-31 06:30] LABS: Creatinine Clr Calc Pharmacy 59.5 ml/min; Est GFR (African American) 65.8; Est GFR (Non-African American) 56.8; Potassium 3.5 mmol/L (3.5-5.1)
[2019-05-31] MEDS ORDERED: dexAMETHasone 4 MG TAB PO SCH (08:00)
[2019-05-31] MEDS: CHECK CLONIDINE PATCH PLACEMENT SCH ×3 (08:27→23:32)
[2019-05-31] MEDS: ESCITALOPRAM OXALATE 10 MG TAB PO SCH (08:28)
[2019-05-31] MEDS: DOCUSATE SODIUM 100 MG CAP PO SCH ×2 (08:28→21:23)
[2019-05-31] MEDS: MULTIVITAMIN TAB PO SCH (08:28)
[2019-05-31] MEDS: TAMSULOSIN HCL 0.4 MG CAP PO SCH (08:28)
[2019-05-31] MEDS: OMEGA-3 (PURIFIED FISH OIL) 1 GM CAP PO SCH (08:29)
[2019-05-31] MEDS: LISINOPRIL/HCTZ 20/25MG 1 TAB PO SCH (08:29)
[2019-05-31] MEDS: EZETIMIBE 10 MG TABLET PO SCH (08:29)
[2019-05-31] MEDS: BuPROPion XL 300 MG TABCR PO SCH (08:29)
--- NOTE | 2019-05-31 10:48 | Orthopedic Progress Note ---
Date of Service May 31, 2019 Assessment & Plan (1) Arthritis of left knee: (2) Status post left knee replacement: Doing well. DVT prophylaxis with Lovenox. This has begun this morning. Finish up his postop antibiotics. We will continue knee immobilizer and motion. Drain output remains elevated. He will need to continue the drains and we will continue the admission until tomorrow. At that time depending on drain output I would anticipate try changing the dressing and pulling the drains. He may weight-bear as tolerated with a walker. We will arrange PT OT home health for his discharge. Labs noted. Vitals stable. Blood pressure okay. Pain well controlled. Subjective Pain is well controlled. No worse than he had before surgery. No complaints of difficulty breathing nausea. Physical Exam Physical Exam: Dorsalis pedis 1+. Foot warm. Capillary refill less than 2 seconds. Dressing clean and dry. Ankle and toe plantarflexion and dorsiflexion strength is 5 out of 5. Knee brace in place. Sensation normal throughout the foot. Results & Data Vital Signs (Past 12 Hours) Vital Signs Temp Pulse Pulse Resp BP Pulse Ox 05/31/19 07:25 36.6 C 68 16 134/77 96 05/31/19 04:31 36.7 C 59 L 16 168/66 H 96 05/30/19 23:34 36.7 C 55 L 16 136/73 97 Diagnostic Findings 05/31/19 05/31/19 05/31/19 Range/Units 05:33 05:33 05:33 WBC 9.77 (4.8-10.8) K/uL RBC 3.62 L (4.7-6.1) M/uL Hgb 11.1 L (14.0-18.0) g/dL Hct 31.8 L (42-52) % MCV 87.8 (80-100) fL MCH 30.7 (25-34) pg MCHC 34.9 (32-36) g/dL RDW Std Deviation 43.9 (36.4-46.3) fL RDW Coeff of Carlene 13.5 (11.5-14.5) % Plt Count 198 (130-400) K/uL MPV 9.3 (7.4-10.4) fL Sodium 140 (136-145) mmol/L Potassium 3.5 (3.5-5.1) mmol/L Chloride 107 (98-107) mmol/L Carbon Dioxide 26 (21-32) mmol/L Anion Gap 7.0 (3-11) BUN 28 H (7-18) mg/dl Creatinine 1.25 (0.6-1.4) mg/dl Est Cr Clr Drug Dosing 59.5 ml/min Est GFR ( Amer) 65.8 Est GFR (Non-Af Amer) 56.8 BUN/Creatinine Ratio 22.0 H (10-20) Glucose 103 H (70-99) mg/dl Calcium 8.0 L (8.5-10.1) mg/dl Hepatitis C Ab Screen Neg (Neg)
--- NOTE | 2019-05-31 12:10 | Anesthesiology Progress Note ---
Date of Service May 31, 2019 Anesthesia Post Procedure Vital Signs Vital Signs: Temp Pulse Pulse Pulse Resp BP Pulse Ox 05/31/19 11:35 36.9 C 63 16 112/68 96 05/31/19 07:25 36.6 C 68 16 134/77 96 05/31/19 04:31 36.7 C 59 L 16 168/66 H 96 05/30/19 23:34 36.7 C 55 L 16 136/73 97 05/30/19 19:21 36.6 C 61 16 133/81 97 05/30/19 18:55 148/83 H 05/30/19 18:08 36.9 C 59 L 18 97 05/30/19 17:29 36.5 C 60 16 163/85 H 100 05/30/19 16:49 36.5 C 58 L 16 143/90 H 98 05/30/19 16:05 36.7 C 60 18 149/84 H 95 05/30/19 15:54 36.4 C L 56 L 20 133/84 96 05/30/19 15:45 58 L 20 146/90 H 93 05/30/19 15:35 36.4 C L 57 L 20 141/90 H 95 05/30/19 15:25 36.4 C L 54 L 14 136/86 94 05/30/19 15:15 58 L 17 128/81 94 05/30/19 15:05 57 L 16 140/85 95 05/30/19 14:58 36.2 C L 61 13 146/89 H 95 Pain Intensity Left Knee: Pain Intensity: 0 Notes Mental Status: alert / awake / arousable and participated in evaluation Nausea / Vomiting: adequately controlled Pain: adequately controlled Airway Patency, RR, SpO2: stable & adequate BP & HR: stable & adequate Hydration State: stable & adequate Neuraxial Anesthesia: sensory block resolved
[2019-05-31] MEDS: SENNA 8.6 MG TAB PO SCH (21:23)
[2019-06-01] MEDS: ENOXAPARIN INJ 30 MG/0.3 ML SYR SQ SCH (06:24)
[2019-06-01] MEDS: ACETAMINOPHEN 500 MG TAB PO SCH ×2 (06:24→13:35)
[2019-06-01] MEDS: DOCUSATE SODIUM 100 MG CAP PO SCH (07:44)
[2019-06-01] MEDS: CHECK CLONIDINE PATCH PLACEMENT SCH (07:44)
[2019-06-01] MEDS: TAMSULOSIN HCL 0.4 MG CAP PO SCH (07:45)
[2019-06-01] MEDS: ESCITALOPRAM OXALATE 10 MG TAB PO SCH (07:45)
[2019-06-01] MEDS: EZETIMIBE 10 MG TABLET PO SCH (07:45)
[2019-06-01] MEDS: MULTIVITAMIN TAB PO SCH (07:45)
[2019-06-01] MEDS: BuPROPion XL 300 MG TABCR PO SCH (07:46)
[2019-06-01] MEDS: OMEGA-3 (PURIFIED FISH OIL) 1 GM CAP PO SCH (07:46)
[2019-06-01] MEDS: LISINOPRIL/HCTZ 20/25MG 1 TAB PO SCH (07:46)
--- NOTE | 2019-06-01 08:30 | Orthopedic Progress Note ---
Date of Service June 01, 2019 Assessment & Plan (1) Status post left knee replacement: Drainage was 25 and 50. Drains are pulled. Wound is benign. He is stable for discharge. He will have PT today. Discontinue the immobilizer work on range of motion. Discharge instructions are given we reviewed his medications wound long-term nursing and therapy Ankur don'ts. Follow-up as scheduled medications Lovenox stool softener pain medication. If there is any problems with swelling fevers drainage please call my office. Present on Admission?: No (2) Arthritis of left knee: Present on Admission?: Yes (3) Acute blood loss anemia: Secondary to surgical procedure. Asymptomatic. Present on Admission?: No Subjective Had some pain last night. Currently well controlled. No nausea. Appetite fair. Physical Exam 2 Physical Exam: Dressing change. Minimal swelling no bruising no drainage. Leg straight. Distal neurovascular function intact. Swelling minimal. Drains pulled Results & Data Vital Signs (Past 12 Hours) Vital Signs Temp Pulse Resp BP Pulse Ox 06/01/19 06:26 36.9 C 65 16 122/73 97 06/01/19 00:40 37.2 C 72 16 135/77 94
--- NOTE | 2019-06-01 13:15 | Discharge Summary ---
Date of Service June 01, 2019 Discharge Data Consultations 05/30/19 14:57 Consult Case Management - Discharge Planning Routine Procedures Performed Operation Date: 05/30/19 09:20 Actual Procedures p Left Total Knee Arthroplasty(Left) - Aman Dukes MD Hospital Course (1) Status post left knee replacement: Patient was admitted to [facility] after undergoing elective left total knee arthroplasty by Dr. Aman Dukes on May 30, 2019. He tolerated his surgery well without any intraoperative complications. His surgery was performed a spinal anesthesia and a peripheral nerve block. He was given 2 g of IV Ancef for surgical prophylaxis which was continued for 24 hours postoperatively. Postoperative x-rays were taken in the postoperative recovery unit and show stable prosthesis and anatomical alignment no evidence of fracture. He was allowed out of bed, weightbearing as tolerated with the knee immobilizer on his left knee as well as the assistance of a walker. He did have 2 Hemovac drains placed intraoperatively so because of this we are limited his postoperative range of motion initially. He was provided a regular diet. His home medications were continued appropriately during his stay. He did well out of bed. He was seen and evaluated by physical therapy and occupational therapy. He is also seen and evaluated by case management who is referred for home health nursing and physical therapy. His vital signs remained stable during his inpatient stay. He did develop a drop in his H&H consistent with acute blood loss anemia, this remained stable. He was placed on Lovenox 30 mg twice a day for DVT prophylaxis as well as AV impulse boots and SULLY stockings. Medical consult was not necessary during his inpatient stay for medical management. He was kept overnight for an additional day due to the amount of drainage that he did have from both Hemovac drains. The drainage subsided postoperative day 2 and they were removed at the bedside. Dressings were also changed of his left knee on postoperative day 2. Continued to have excellent pain control during his inpatient stay. He was given Tylenol, oxycodone and tramadol to control pain. He did need to take some oxycodone the evening of postoperative day one to help control pain. He was deemed safe for discharge to his home by physical therapy and outpatient therapy. [facility] home health was arranged. He was discharged to his home in stable condition on June 01, 2019. Discharge instructions were provided. Follow-up as instructed. (2) Acute blood loss anemia: Asymptomatic, no need for blood transfusions during inpatient stay. Monitor during his stay. We will obtain a CBC a few days after surgery as an outpatient. Discharge Instructions as per EMR
== END 2019-06-01 14:00 | disposition home health service (06) | DRG 470 ==
LOC: ASU 06:46 → 3E 14:57

== ENCOUNTER 2019-10-31 05:00 | Inpatient (IN) ==
--- NOTE | 2019-10-25 09:39 | Anesthesiology Consultation ---
Date of Service October 25, 2019 Assessment & Plan (1) Encounter for pre-operative examination: S/P Left TKA: 05/30/19: SABx2 at L3-L4 + PNB at [facility]. Per anesthesia record, possible U-wave/inverted T wave perioperatively. "Pt to get 12 lead EKG post- op." No record of patient subsequently having 12 lead EKG. Will order/attempt to have patient done prior to DOS (if not able to be done prior, will order for AM DOS). Chart Review Chart Review: Patient NOT seen in Pre Admission Testing History Surgery Operation Date: 10/31/19 07:00 Proposed Procedures p Right Total Knee Arthroplasty - Aman Dukes MD Height/Weight Height: 6 ft 1 in Weight: 92.079 kg Allergies Allergy/AdvReac Type Severity Reaction Status Date / Time atorvastatin AdvReac Unknown ELEVATED Verified 10/10/19 09:50 CHOLESTEROL (QUADRUPLED) Medications Home Medications Medication Instructions Recorded Confirmed Last Taken bupropion HCl 300 mg PO QAM 05/02/19 10/10/19 05/29/19 08:00 escitalopram oxalate 10 mg PO QAM 05/02/19 10/10/19 05/29/19 08:00 ezetimibe 10 mg PO QAM 05/02/19 10/10/19 05/29/19 08:00 lisinopril-hydrochlorothiazide 1 tab PO QAM 05/02/19 10/10/19 05/29/19 08:00 omega 3-mhr-cnd-fish oil [Fish Oil] 1 cap PO QAM 05/02/19 10/10/19 05/16/19 ibuprofen 600 mg PO QAM 10/10/19 10/10/19 Unknown multivitamin 1 tab PO QAM 10/10/19 10/10/19 Unknown Past Medical History Medical History BCC (basal cell carcinoma) Cancer 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 Depression Hyperlipidemia Hypertension Osteoarthritis Past Family History Family History Other No pertinent family history Past Surgical History Surgical History (Updated 10/25/19 @ 09:38 by Reanna Nath) History of arthroscopy RIGHT KNEE History of cataract surgery BILATERAL History of colonoscopy History of surgical removal of skin lesion History of tonsillectomy History of total knee replacement Left TKA: 05/30/19: SABx2 at L3-L4 + PNB at [facility] S/P Mohs surgery for basal cell carcinoma Social History Smoking Status: Former smoker tobacco type: cigars Smoking cigarettes per day: QUIT CIGARS MANY YRS AGO Do You Dip or Chew Tobacco: No Hx Alcohol Use: Yes Alcohol type: wine and hard liquor alcohol intake frequency: a few times a week Hx Substance Use: No substance use type: does not use Testing Laboratory Results 10/04/19 WBC 6.74 H/H 14.2/42.3 PLATELETS 309 SODIUM 140 POTASSIUM 4.0 CHLORIDE 103 CO2 28 BUN 24 CREATININE 1.18 GLUCOSE 93 PT 12.4 PTT 35 INR 1.0 Electrocardiogram Date: 05/08/19 Findings: + NSR @ (60) Chest X-Ray Date: 05/08/19 Findings: + NAD
[2019-10-31] MEDS ORDERED: TRANEXAMIC ACID / 0.7% NACL 1,000 MG/100 ML BAG IV SCH (06:00)
[2019-10-31] MEDS ORDERED: FAMOTIDINE 20 MG TAB PO SCH (06:00)
[2019-10-31] MEDS ORDERED: LR 15ML/HR IV SCH (06:00)
[2019-10-31] MEDS ORDERED: TRAMADOL HCL 50 MG TABLET PO SCH (06:00)
[2019-10-31] MEDS ORDERED: OXYCODONE HCL 10 MG TABCR (OXYCONTIN) PO SCH (06:00)
[2019-10-31] MEDS ORDERED: GABAPENTIN 300 MG CAP PO SCH (06:00)
[2019-10-31] MEDS ORDERED: TRANEXAMIC ACID 1,000 MG **IV Intra-op IV SCH (06:00)
[2019-10-31] MEDS ORDERED: ACETAMINOPHEN 500 MG TAB PO SCH (06:00)
[2019-10-31] MEDS ORDERED: CeleBREX 200 MG CAP PO SCH (06:00)
[2019-10-31] MEDS ORDERED: CEFAZOLIN 2000MG 2,000 MG/15 ML SYR IV SCH (06:00)
[2019-10-31] MEDS ORDERED: cloNIDine HCL 0.1 MG/24 HR TRANSDERM SYS TD SCH (06:00)
[2019-10-31] MEDS ORDERED: dexAMETHasone 4 MG TAB PO SCH (06:00)
[2019-10-31] MEDS ORDERED: LR 60ML/HR IV SCH (06:00)
[2019-10-31] MEDS ORDERED: METOCLOPRAMIDE HCL 10 MG TABLET PO SCH (06:00)
[2019-10-31] MEDS ORDERED: ROPIVACAINE 0.5% HCL/PF 150 MG, BUPIVACAINE 0.5% MPF 30 ML, EPINEPHrine 0.15 MG, Ketoro... INFIL SCH (06:00)
[2019-10-31] MEDS ORDERED: LIDOCAINE HCL 2% 2 ML VIAL/AMP(20MG/ML) INFIL ONE (06:30)
[2019-10-31] MEDS ORDERED: MIDAZOLAM HCL 1 MG/ML 2ML VIAL ONE ×2 (06:30→12:24)
[2019-10-31] MEDS ORDERED: PROPOFOL IV EMULSION 10 MG/ML 20 ML VIAL IV ONE (06:30)
[2019-10-31] MEDS ORDERED: ORTHO JOINT ANESTHETIC ONE (06:38)
[2019-10-31] MEDS ORDERED: BACITRACIN INJ 50,000 UNIT VIAL ONE (06:38)
[2019-10-31] MEDS ORDERED: VANCOMYCIN HCL 1000MG/20ML VIAL ONE (06:38)
[2019-10-31] MEDS ORDERED: ONDANSETRON INJ 2 MG/ML 2 ML VIAL IV PRN ×2 (06:40→11:42)
[2019-10-31] MEDS ORDERED: ePHEDrine sulfate 50 MG/ML AMP IV PRN (06:40)
[2019-10-31] MEDS ORDERED: HYDROmorphone INJ 1 MG/ML SYRINGE IV PRN (06:40)
[2019-10-31] MEDS ORDERED: KETOROLAC 30 MG/ML VIAL IV PRN (06:40)
[2019-10-31] MEDS ORDERED: ATROPINE SULFATE 0.1 MG/ML 10ML SYR IV PRN (06:40)
--- NOTE | 2019-10-31 06:44 | History & Physical Bridge Note ---
Date of Service October 31, 2019 History & Physical Bridge Note I have examined the patient, reviewed the History & Physical and in the interval since the performance of the History & Physical I have noted the following changes of clinical significance: no changes noted
[2019-10-31] MEDS ORDERED: BUPIVACAINE 0.5 % 5 MG/1 ML PF 10ML VIAL ONE (06:51)
[2019-10-31] MEDS ORDERED: ROPIVACAINE 0.5% 5 MG/ML 30 ML VIAL ONE (06:51)
[2019-10-31] MEDS ORDERED: fentaNYL citrate 100 MCG/2 ML VIAL ONE (09:43)
[2019-10-31] MEDS ORDERED: ONDANSETRON INJ 2 MG/ML 2 ML VIAL ONE (10:14)
--- NOTE | 2019-10-31 10:34 | Operative Report ---
Post Operative Report Pre & Post Diagnosis Operation Date: 10/31/19 07:00 Pre-Op Diagnosis: Right Knee Degenerative Joint Disease Post-Op Diagnosis: Right Knee Degenerative Joint Disease I identified the patient and participated in the time-out.: Yes Procedure Operation Date: 10/31/19 07:00 Actual Procedures p Right Total Knee Arthroplasty(Right) - Aman Dukes MD Surgeon Aman Dukes MD Foreman/[employer] Italia Thomson PA-C Estimated Blood Loss 50 Findings Consistent with Post-Op Diagnosis Specimens Synovial tissue Drains None Anesthesia Type Spinal MAC Complications none Description of Procedure Patient was taken to the operating room and placed under spinal sedation with peripheral nerve block. He was given 2 g of IV Ancef for surgical prophylaxis. Time out was performed. He was prepped and draped in routine sterile fashion. I was present during the entire case and assisted with exposure, implantation of hardware, hemostasis, closure and dressings. Please see Dr. Dukes's operative report for further detail. Patient was awakened and transferred to the recovery room in stable condition. I attest to the content of the Intraoperative Record and any orders documented therein. Any exceptions are noted below.
[2019-10-31] MEDS ORDERED: TAMSULOSIN HCL 0.4 MG CAP PO PRN ×2 (10:52→11:42)
--- NOTE | 2019-10-31 10:54 | Operative Report ---
Post Operative Report Pre & Post Diagnosis Operation Date: 10/31/19 07:00 Pre-Op Diagnosis: Right Knee Degenerative Joint Disease Post-Op Diagnosis: Right Knee Degenerative Joint Disease I identified the patient and participated in the time-out.: Yes Procedure Operation Date: 10/31/19 07:00 Actual Procedures p Right Total Knee Arthroplasty(Right) - Aman Dukes MD Surgeon Aman Dukes MD Tooling Specialist Italia Thomson PA-C Estimated Blood Loss 50 Findings Consistent with Post-Op Diagnosis Specimens Resected bone and soft tissue plus hypertrophic synovium Drains None Anesthesia Type MAC Spinal Regional Complications none Disposition Accompanied Patient To Recovery: No Disposition: Recovery Room Indications Patient 74 years old. He has severe arthritis in his right knee. He is recently status post successful left knee replacement. Treatment options risks and benefits have been discussed and he elected to proceed with operative intervention. Description of Procedure Informed consent obtained. Patient identified. He identified the operative site as the right knee. I marked with my initials. A preop surgical timeout was performed. A preop dose of IV antibiotics was given. He was positioned supine on the OR table with a bump under the right hip and calf. A tourniquet was applied to the right thigh. The entire leg was prepped and draped in the usual sterile fashion. Exam under anesthesia revealed range of motion 0/0/115. He had a large effusion. There was almost 2+ laxity of the MCL and 1+ laxity of the LCL both with intact endpoints. There was market varus alignment. DVT prophylaxis with foot pumps intraoperatively and postoperatively with early mobility mechanical devices and Lovenox. Limb exsanguinated with the Esmarch. Tourniquet inflated to 250 mmHg. A midline longitudinal incision was made followed by medial parapatellar arthrotomy. Prior to doing the arthrotomy a well formed flocculent prepatellar bursa was removed. Inside the knee soft tissue on the superior aspect of the distal femur was removed. He had a very large and thickened synovial lining throughout the knee which was removed as encountered particularly in the suprapatellar pouch where it was fibrillated had a white shiny thickened layer at least 1/4-3/8 of an inch thick which was thoroughly excised. The synovial reflection in the lateral gutter was released. There was a 1 cm osteophyte on the inferomedial patella which was resected. An extensile medial release was performed followed by resection of the retropatellar fat pad. The patella showed mostly grade 3 changes. The synovium around the margin of the patella was removed along with marginal osteophytes. The knee was flexed and the patella was easily everted. The osteophytes throughout the knee were removed which were extensive. The medial meniscus and ACL were deficient. The anterior portion of the lateral meniscus was absent and the remainder was markedly frayed. The meniscal remnants and the PCL were removed. The knee was then subluxated. Osteophytes underneath the collateral ligaments were removed. A commercial airplane pilot hole was drilled into the proximal tibia just in front of the tibial spines and between them. The alignment ramiro was introduced but could not be fully seated likely secondary to the patient's prior history of ankle trauma but it was down within 4 to 6 inches of the ankle joint and should have been engaged within the main portion of the tibial diaphysis. The 0 degree cutting block was applied and properly aligned to the tibial tubercle. Due to the patient's substantial varus valgus laxity I wanted to make minimal cut. On his contralateral side I had only cut 6 mm off of the tibia on the lateral side which was a skin cut medially and ended up being a 12.5 mm thick spacer. I went ahead and set him up for a 6 mm lateral cut which show corresponded to a skin cut medially. This cut was made and sized to a 5. Remaining posterior medial and lateral osteophytes were removed. There was a small area 5 mm wide and a centimeter long of bone defect far medial tibial plateau which would eventually be left. Web Database Developer holes drilled into the distal femur and the intramedullary ramiro was inserted followed by the distal femoral cutting block. 6 degrees right knee valgus 12 mm thick cut. This was made. The epicondylar axis was marked out. Distal femoral sizing block was applied and sized to a 5. External rotation drill holes were made which matched the epicondylar axis. The extension gap at this point was slightly loose 10 on the lateral side and a fairly tight 10 on the medial side. Further posterior medial release resulted in slightly wider symmetry laterally versus medially but excepting a 10. Collateral ligaments were protected and the femoral cutting guide was applied and those cuts were made. Posterior medial osteophytes were removed along with a loose body. The flexion gap was a symmetrical 10. Box cutting guide applied lateralized and box cut made. Size 5 femoral trial applied with good fit. Attention was turned to the tibia where the size 5 tray was lateralized and aligned properly with rotation to the tibial tubercle. It was pinned into place and then the keel was drilled and punched. Uncapped medial bone was marked and apart but not all of this was resected in order to relieve further tension on the MCL. I removed about 1 to 2 mm. A size 10 was applied and this actually fit very well the knee was fully extended with neutral alignment and had no varus valgus laxity. At 30 degrees knee flexion there was no MCL laxity and 1+ physiologic LCL laxity at 90 degrees of flexion there was no varus valgus laxity noted. Attention was turned to the patella. It was measured to be 26-1/2 mm in thickness. A 41 mm oval dome patella was selected. The guide was set to preserve 15 mm of bone. The cut was made. Marginal lateral osteophytes are removed. Paddle was aligned with the knee in slight flexion and then the lug holes were drilled. Patellar tracking was fine with no hands technique. The canals were plugged after removing the components. Sclerotic bone on the patella femur and tibia was drilled. Ortho joint mix injected into the back of the knee. 2 bags of Simplex P cement were mixed and then while in a doughy state the components were cemented into place. Femur tibia patella. There were held in full extension until cement hardened. Prior to cementing the bony surfaces were meticulously irrigated and dried. The remainder of the Ortho joint mix was injected followed by copious pulsatile lavage. After the cement hardened at 123 minutes the tourniquet was let down and meticulous hemostasis was performed. There was general oozing noted. The lateral geniculate was cauterized. Another dose of TXA was given. Trialing was again performed and the 10 mm thick polyethylene gave the best stability profile. The back the knee was inspected for cement and there was none. The knee was then irrigated and the final polyethylene was inserted. At this point the knee was dry. The knee was held in slight flexion and the extensor mechanism was closed above the equator of the patella with interrupted #2 FiberWire. Below was closed with running and interrupted #1 Vicryl. The skin was closed in layers with 0 and 2-0 Vicryl and renan on the skin. A small amount of fluid collection was noted in the retropatellar tendon area. There was no blood within the bursa. There was nothing within the suprapatellar pouch. I aspirated lateral parapatellar and got 30 cc of blood. A compressive dressing was thereafter applied. [place] assisted flexion with extensor mechanism closed was 115 degrees. Knee was fully straight. Composite patellar thickness was 27 mm. The leg was cleaned with wet and dry sponges and a soft sterile dressing was applied Xeroform 4 x 4's ABDs and full-length Eder wrap. Patient was then awakened from anesthesia without difficulty and taken to the recovery room in stable condition. There were no complications. Specimens were as mentioned above. Counts were correct and blood loss is estimated to be 50 cc. At the conclusion of the operation spoke patient's family and informed of my findings. Postop instructions were given. Components inserted with a J[employer]J PFC Sigma rotating platform knee size 5 right posterior stabilized femur a size 5 mobile-bearing keeled tibial tray with a size 510 mm thick polyethylene insert and a 41 mm 3 peg oval dome patella which was inserted distal and medial on the patellar remnant. Routine postop total knee rehab. I attest to the content of the Intraoperative Record and any orders documented therein. Any exceptions are noted below.
--- NOTE | 2019-10-31 11:25 | XRay Report ---
XR knee RT 1 or 2V routine CLINICAL HISTORY: Surgical Post Op COMPARISON: 05/08/2019 DISCUSSION: There are postsurgical changes of a total right knee arthroplasty and patellar resurfacin g. The femoral and tibial components appear well seated. There is a large joint effusion. There is ga s present within the soft tissues consistent with recent surgery. There are overlying skin renan. IMPRESSION: Postsurgical changes of a total right knee arthroplasty. ACT 112: Negative or not required by law. Electronically signed by: Timoteo aGllagher M.D. 10/31/2019 11:23 AM
[2019-10-31] MEDS ORDERED: HydrALAZINE HCL 20 MG/ML VIAL IV PRN ×2 (11:36→11:42)
[2019-10-31] MEDS ORDERED: bisacodyL 10 MG SUPP PR PRN (11:42)
[2019-10-31] MEDS ORDERED: MAGNESIUM HYDROXIDE SUSP 30 ML UDC PO PRN (11:42)
[2019-10-31] MEDS ORDERED: OXYCODONE HCL IR 5 MG TAB (IMMEDIATE RELEASE) PO PRN (11:42)
[2019-10-31] MEDS ORDERED: TRAMADOL HCL 50 MG TABLET PO PRN (11:42)
[2019-10-31] MEDS ORDERED: NALOXONE HCL 0.4 MG/1 ML VIAL/CARP IV PRN (11:42)
[2019-10-31] MEDS ORDERED: HYDROmorphone INJ 0.5 MG/0.5 ML SYR IV PRN (11:42)
[2019-10-31] MEDS: CHECK CLONIDINE PATCH PLACEMENT SCH ×3 (12:04→15:11)
[2019-10-31] MEDS: SODIUM CHLORIDE 0.9% 1000ML 1,000 ML IV SCH ×2 (12:30→22:13)
[2019-10-31] MEDS: KETOROLAC TROMETHAMINE 15 MG/ML VIAL IV SCH ×2 (13:06→18:01)
[2019-10-31] MEDS: ACETAMINOPHEN 500 MG TAB PO SCH ×2 (13:21→21:43)
--- NOTE | 2019-10-31 14:11 | Anesthesiology Progress Note ---
Date of Service October 31, 2019 Anesthesia Post Procedure Vital Signs Vital Signs: Temp Pulse Pulse Resp BP Pulse Ox 10/31/19 13:24 36.5 C 57 L 16 140/90 97 10/31/19 12:27 36.6 C 57 L 16 139/80 97 10/31/19 12:09 36.5 C 51 L 16 126/77 98 10/31/19 11:35 36.5 C 57 L 14 113/73 95 10/31/19 11:12 36.5 C 59 L 12 116/75 95 10/31/19 11:00 57 L 16 112/78 94 10/31/19 10:50 58 L 15 112/73 94 10/31/19 10:40 62 14 107/72 93 10/31/19 10:34 36.1 C L 64 16 116/58 L 97 10/31/19 05:48 36.4 C L 67 20 111/81 98 Transfer of Care Handoff Completed per policy Notes Mental Status: alert / awake / arousable Patient Amnestic to Procedure: Yes Nausea / Vomiting: adequately controlled Pain: adequately controlled Airway Patency, RR, SpO2: stable & adequate BP & HR: stable & adequate Hydration State: stable & adequate Neuraxial Anesthesia: was administered and sensory block is resolving Anesthetic Complications: no major complications apparent
[2019-10-31] MEDS: CEFAZOLIN 1000MG 1,000 MG/7.5 ML SYR IV SCH ×2 (14:41→21:43)
--- NOTE | 2019-10-31 17:35 | Progress Note ---
Date of Service October 31, 2019 Assessment & Plan (1) Arthritis of right knee: Doing well postoperatively. We talked about his exercises. PT per protocol. Postop antibiotics. Lovenox to begin approximately 12 hours postop. Continue elevation icing and routine postoperative pain management. 2 views of the knee show positive effusion. Components well positioned without any evidence of complication. There is no fracture. Present on Admission?: Yes (2) Status post right knee replacement: Present on Admission?: No Admission and Anticipated Discharge Date Admission Date: October 31, 2019 Subjective Sitting in chair. Pain minimal. No numbness or tingling. Has started to do PT. Parameters for leg raises and range of motion discussed. Physical Exam Physical Exam: Posterior tib 1+. Sensation intact top and bottom of the foot. 5 out of 5 ankle and toe plantarflexion and dorsiflexion strength. Dressing intact clean and dry. Results & Data ([facility]) Vital Signs (Past 12 Hours) Vital Signs Temp Pulse Pulse Resp BP Pulse Ox 10/31/19 14:39 36.5 C 60 16 120/70 93 10/31/19 13:24 36.5 C 57 L 16 140/90 97 10/31/19 12:27 36.6 C 57 L 16 139/80 97 10/31/19 12:09 36.5 C 51 L 16 126/77 98 10/31/19 11:35 36.5 C 57 L 14 113/73 95 10/31/19 11:12 36.5 C 59 L 12 116/75 95 10/31/19 11:00 57 L 16 112/78 94 10/31/19 10:50 58 L 15 112/73 94 10/31/19 10:40 62 14 107/72 93 10/31/19 10:34 36.1 C L 64 16 116/58 L 97 10/31/19 05:48 36.4 C L 67 20 111/81 98
[2019-10-31] MEDS: DOCUSATE SODIUM 100 MG CAP PO SCH (20:39)
[2019-10-31] MEDS ORDERED: SENNA 8.6 MG TAB PO SCH (21:00)
[2019-10-31] MEDS: ENOXAPARIN INJ 30 MG/0.3 ML SYR SQ SCH (21:44)
[2019-10-31] MEDS ORDERED: ENOXAPARIN INJ 30 MG/0.3 ML SYR SQ SCH (22:00)
[2019-11-01] MEDS: ACETAMINOPHEN 500 MG TAB PO SCH ×2 (05:07→13:27)
[2019-11-01] MEDS: KETOROLAC TROMETHAMINE 15 MG/ML VIAL IV SCH ×2 (05:08)
[2019-11-01 05:52] LABS: Hematocrit (blood only) 27.5 % (42-52); Hemoglobin 9.9 g/dL (14.0-18.0); Mean Corpuscular Hemoglobin 30.5 pg (25-34); Mean Corpuscular Volume 84.6 fL (80-100); Mean Platelet Volume 8.7 fL (7.4-10.4); Platelet Count 203 K/uL (130-400); RDW Coefficient of Variation 14.9 % (11.5-14.5); RDW Standard Deviation 46.9 fL (36.4-46.3); Red Blood Count 3.25 M/uL (4.7-6.1); White Blood Count 9.62 K/uL (4.8-10.8)
[2019-11-01 06:19] LABS: BUN Creatinine Ratio 22.4 (10-20); Calcium 7.9 mg/dl (8.5-10.1); Creatinine Clr Calc Pharmacy 59.5 ml/min; Est GFR (African American) 65.8; Est GFR (Non-African American) 56.8; Potassium 3.5 mmol/L (3.5-5.1)
--- NOTE | 2019-11-01 07:41 | Anesthesiology Progress Note ---
Date of Service November 01, 2019 Anesthesia Post Procedure Vital Signs Vital Signs: Temp Pulse Pulse Resp BP Pulse Ox 11/01/19 02:24 36.7 C 61 16 138/76 97 10/31/19 22:54 36.7 C 59 L 16 133/78 96 10/31/19 19:02 36.5 C 61 16 131/76 99 10/31/19 14:39 36.5 C 60 16 120/70 93 10/31/19 13:24 36.5 C 57 L 16 140/90 97 10/31/19 12:27 36.6 C 57 L 16 139/80 97 10/31/19 12:09 36.5 C 51 L 16 126/77 98 10/31/19 11:35 36.5 C 57 L 14 113/73 95 10/31/19 11:12 36.5 C 59 L 12 116/75 95 10/31/19 11:00 57 L 16 112/78 94 10/31/19 10:50 58 L 15 112/73 94 10/31/19 10:40 62 14 107/72 93 10/31/19 10:34 36.1 C L 64 16 116/58 L 97 Pain Intensity Right Knee: Pain Intensity: 4 Notes Mental Status: alert / awake / arousable Patient Amnestic to Procedure: Yes Nausea / Vomiting: adequately controlled Pain: adequately controlled Airway Patency, RR, SpO2: stable & adequate BP & HR: stable & adequate Hydration State: stable & adequate Neuraxial Anesthesia: was administered and sensory block resolved Anesthetic Complications: no major complications apparent and Pt Satisfied with anesthetic care
[2019-11-01] MEDS ORDERED: dexAMETHasone 4 MG TAB PO SCH (08:00)
[2019-11-01] MEDS: CHECK CLONIDINE PATCH PLACEMENT SCH ×2 (08:34)
[2019-11-01] MEDS: DOCUSATE SODIUM 100 MG CAP PO SCH (08:35)
[2019-11-01] MEDS ORDERED: LISINOPRIL/HCTZ 20/25MG 1 TAB PO SCH (09:00)
[2019-11-01] MEDS ORDERED: BuPROPion XL 300 MG TABCR PO SCH (09:00)
[2019-11-01] MEDS ORDERED: EZETIMIBE 10 MG TABLET PO SCH (09:00)
[2019-11-01] MEDS ORDERED: ESCITALOPRAM OXALATE 10 MG TAB PO SCH (09:00)
[2019-11-01] MEDS ORDERED: MULTIVITAMIN TAB PO SCH (09:00)
[2019-11-01] MEDS: ENOXAPARIN INJ 30 MG/0.3 ML SYR SQ SCH (10:02)
--- NOTE | 2019-11-01 10:16 | Progress Note ---
DATE: 11/01/2019 Out of bed. Resting comfortably in a chair. Pain is minimal. OT completed. Afebrile, vital signs stable. Labs are noted. Hemoglobin 10, hematocrit 28. PRP noted. On examination, he is placed in supine position in bed. Posterior tip 1+. Normal sensation. He has some clawtoe deformity, but has 5/5 strength in ankle and toe plantar flexion and dorsiflexion with normal sensation. There is some spotting on the lower portion of his dressing. The dressing is removed. There is no active drainage. There is mild amount of intra-articular fluid accumulation and a trace amount of bursal fluid accumulation. There is no active drainage. No skin necrosis and nothing is significantly tense. Wound clean and a full length dressing applied with Eder wrap Xeroform gauze ABD. IMPRESSION: Right knee arthritis status post right knee replacement. He also has a symptomatic acute post-surgical anemia. Other problems include prostate cancer. PLAN: He is doing very well. I will see how he does with PT later today. If pain controlled and does well with PT, would consider discharge this afternoon. He will follow up as scheduled. If any oozing persists, he will let us know Wednesday. [place] will check on him Wednesday. He will have PT and OT arranged at home. Follow up with me in 2 weeks. If there are any problems with swelling, fevers, drainage, pain, etc., he will let us know. Hand hygiene, bathing instructions given. Discharged on Lovenox x2 weeks. Check CBC Wednesday. Ultram and oxycodone if needed.
--- NOTE | 2019-11-01 10:29 | Discharge Summary ---
Date of Service November 01, 2019 Discharge Data Consultations 10/31/19 11:42 Consult Case Management - Discharge Planning Routine Procedures Performed Operation Date: 10/31/19 07:00 Actual Procedures p Right Total Knee Arthroplasty(Right) - Aman Dukes MD Hospital Course (1) Status post right knee replacement: Patient underwent an elective right total knee arthroplasty by Dr. Dukes on October 31 2019. His surgery was perform a spinal anesthesia, peripheral nerve block and IV sedation. He tolerated the procedure well without any intraoperative complications. He was given 2 g of IV Ancef for surgical prophylaxis preoperatively and this was continued for 24 hours after surgery.Recovery room in x-ray of his right knee was obtained. X-ray results showed no evidence of fracture, good alignment of the right total knee arthroplasty and positive for effusion. Postoperatively he was brought out of bed, weight-bear as tolerated right lower extremity with the assistance of a walker and knee immobilizer when out of bed. Physical therapy and occupational therapy consults were obtained. Case management was also involved for discharge planning. He tolerated regular diet during his inpatient stay. He was started on Lovenox 30 mg twice a day 12 hours after surgery. This will be continued for 2 weeks after the surgery. His dressings were changed on postoperative day one due to some mild drainage on the dressing. He requested discharge to home was [facility] and this was arranged by social work manager. He did well out of bed and was safe and occupational therapy as well as physical therapy. Labs were stable during his inpatient stay. He did develop acute blood loss anemia but remained asymptomatic. He was given Tylenol, Toradol, tramadol, oxycodone and IV Dilaudid for postoperative pain control. His pain was well-controlled with Tylenol and tramadol after surgery. Vital signs remained stable. His home medications were continued during his inpatient stay. Ice was applied to the right knee. He did well postoperatively and was deemed safe for discharge to his home with his on November 01, 2019. Discharge instructions were reviewed and provided. (2) Acute blood loss anemia: Asymptomatic. Will monitor as outpatient with scheduled CBC on 11/06/19. Discharge Instructions New Medicine: * You will likely be taking one or more of these medications: 1. Lovenox 30 mg SQ - You will be on Lovenox for 2-4 weeks after surgery to prevent blood clots. Do not take anti-inflammatory pills (Advil or Aleve) while on Lovenox. Aspirin, 81 mg is OK. - script sent electronically to pharmacy 2. Oxycodone - Take, as directed, when you need it, every four to six hours to control your pain. - script sent electronically to pharmacy 3. Tramadol - take, as directed, when you need it, every four to six hours to control your pain. - script sent electronically to pharmacy 3. Colace & Senokot - Take to prevent constipation which can be caused by narcotics. These can be bought [id number] at the pharmacy. 4. Tylenol - take 500mg-1000mg every 8 hours as needed for mild pain. This can be bought over the counter at the pharmacy. * The most common side effects of pain medicine and iron are nausea and constipation. If nausea or constipation is too much of a problem or if you have any questions about your new medicines or doses, call [facility] at . We will try to help you manage these issues. "VERY IMPORTANT TO READ AND REVIEW" Blood Clots and Blood Thinning Medicine: * You are given Lovenox during the immediate post-operative period to lessen the risk of blood clots forming in your legs and/or lungs. Lovenox is usually given for 2-4 weeks after surgery. * You will need to get a CBC drawn on Wednesday11/06/19. Script provided. Have drawn by home health or go to outpatient clinic to have drawn. Will be drawn at facility if you are at inpatient rehab or [facility] facility. Physical Therapy: * Do your physical therapy at home. These are the exercises you learned while in the hospital (quad sets, leg raises, calf pumps, gluteal squeezes, knee bending, and heel props.) You should do these exercises 3-4 times per day. * You will either go to inpatient rehab ([facility]), home with Home Therapy and nursing or home with outpatient rehab. You should do rehab with the therapist 2-3 times per week. You should do therapy on your own daily. * You may bear full weight on your leg with crutches or walker unless otherwise advised. Home Exercise: * You were shown a series of exercises (heel props, heel slides, etc.) in the hospital. Do these exercises three to four times each day including the exercises you were shown in physical therapy. Walking: * You may be up for short periods of time. Standing and walking for 1-2 hours at a time is usually okay. You should not stand or walk for excessive periods of time as this may Cause increased pain and swelling. SELF CARE INSTRUCTIONS AFTER TOTAL KNEE REPLACEMENT A. You may need to continue a physical therapy program after discharge from the hospital. There are several options available to you. Your doctor will assist you in selecting the best one for you. 1. An out-patient facility 2 to 3 times a week for therapy or home therapy. 2. Continue working on all exercises taught to you in the hospital. Your goals should be to increase bending of your knee to 90 degrees and beyond and to fully straighten your knee. B. Your therapist will notify you when you are able to progress from a walker to a cane. C. Wear TEDS as much as possible.~ They may be removed at night for laundering. D. Do not place a pillow behind your knee when resting. A pillow at your ankle is okay. E. Ice your knee 15-20 minutes every 2-3 hours and elevate it above the level of your heart. F. You may shower on the fourth day after surgery (Wednesday) using regular soap and water. Do not submerge until the wound is completely healed (approximately 2 weeks). Patient incision dry. Redress with light dressing if necessary. Reapply Sully stocking. G. Anyone who is touching your surgical incision area should wash their hands and wear gloves. H. Keep your incision covered with gauze pads under the SULLY hose until it is dry. I. Dressing to be changed on by home health. Apply light dressing to left knee and SULLY stocking. Reinforce dressing as needed. Keep incision covered until your follow up appointment. VERY IMPORTANT TO READ AND REVIEW A. YOU WILL BE GIVEN AN ORDER AT DISCHARGE FOR CBC (BLOOD WORK). PLEASE HAVE THIS DONE INSTRUCTED on 11/06/19. PLEASE CALL OUR OFFICE AFTER YOUR BLOODWORK IS COMPLETE SO WE CAN TRACK YOUR RESULTS. IF YOU ARE GOING TO OUTPATIENT PHYSICAL THERAPY, YOU WILL NEED TO GO TO OUTPATIENT TESTING TO HAVE IT DRAWN. B. There are a few signs you need to watch for after you are home. Call [facility] if you notice any of the followin. Increased severe knee pain. Some pain is expected especially when you exercise. 2. Increased swelling in your leg or knee; pain or swelling of the calf muscle in either lower leg. 3. Any fluid drainage from the incision. 4. Shortness of breath or chest pain. 5. Numbness and tingling in the surgical extremity C. Please call [facility] at if you have any concerns or questions about your operation or recovery. The doctor or his nurse will return your call promptly. D. Do not have any elective dental work or other elective procedures done for 6 weeks after your knee replacement. When you have any invasive procedure (dental cleaning, extraction, colonoscopy etc) performed, you will need to take antibiotics to prevent infection from developing in your artificial joint. Tell your other health care providers you have an artificial joint. My office will supply you with further information and the antibiotics. Call your doctor if: * Temperature above 101 degrees F. * Pain not relieved by pain medicine ordered. * Increased drainage or redness from incision. * Notify your doctor with any questions or concerns.
[2019-11-01] MEDS ORDERED: CeleBREX 200 MG CAP PO SCH (21:00)
== END 2019-11-01 14:04 | disposition home health service (06) | DRG 470 ==
LOC: ASU 05:00 → OBSVTOIN 10:49 → INTOOBSV 10:49 → 3E 10:49